=== PATIENT | female | born 1940 | race Caucasian/White ===

== ENCOUNTER 2017-03-23 00:33 | Inpatient (IN) | payer MEDICARE, OTHER ==
[2017-03-23] VITALS (9 sets, daily range): BP systolic 122–169; BP diastolic 42–73
[~2017-03-23] VITALS: Ht 160 cm; Wt 87.7 kg
[2017-03-23 01:32] LABS: BASO % 0.3 % (0.0-1.0); EOS # 0.1 10*3/uL (0.0-0.4); EOS % 1.1 % (1.0-4.0); HEMATOCRIT 38.7 % (37.0-47.0); HEMOGLOBIN 13.6 g/dl (12.0-16.0); LYMPH # 1.8 10*3/uL (1.3-4.4); LYMPH % 15.2 % (27.0-41.0); MEAN CELL VOLUME 89.4 fl (81.0-99.0); MEAN CORPUSCULAR HGB 31.4 pg (27.0-31.0); MEAN CORPUSCULAR HGB CONC 35.1 g/dl (33.0-37.0); MEAN PLATELET VOLUME 9.4 fl (9.6-12.3); MONO # 0.9 10*3/uL (0.1-1.0); MONO % 7.8 % (3.0-9.0); NEUT # 8.8 10*3/uL (2.3-7.9); NEUT % 74.8 % (47.0-73.0); PLATELET COUNT AUTOMATED 247 10*3/uL (130-400); RED BLOOD COUNT 4.33 10*6/uL (4.10-5.10); RED CELL DISTRI WIDTH 11.7 % (0-14.5); WHITE BLOOD COUNT 11.7 10*3/uL (4.8-10.8)
[2017-03-23 01:51] LABS: ALBUMIN 3.2 gm/dl (3.1-4.5); ALKALINE PHOSPHATASE 99 U/L (45-117); BUN 24 mg/dl (7-24); CHLORIDE 98 mmol/L (98-107); POTASSIUM 3.1 mmol/L (3.5-5.1); SGOT/AST 19 IU/L (3-35); SGPT/ALT 22 U/L (12-78); SODIUM 136 mmol/L (136-145); TOTAL PROTEIN 7.6 gm/dL (6.4-8.2)
[2017-03-23 01:52] LABS: TROPONIN I < 0.015 ng/ml (<0.045)
[2017-03-23 03:25] LABS: BILIRUBIN 1+ (NEGATIVE); BLOOD TRACE-LYSED (NEGATIVE); CLARITY CLEAR (CLEAR); COLOR YELLOW (YELLOW); GLUCOSE NEGATIVE (NEGATIVE); KETONE TRACE (NEGATIVE); LEUKO ESTERASE 1+ (NEGATIVE); NITRITE NEGATIVE (NEGATIVE); SPECIFIC GRAVITY <= 1.005 (1.005-1.030); UROBILINOGEN 0.2 E.U./dl (0.2-1.0)
[2017-03-23 03:33] LABS: URINE AMPHETAMINES < 1000 (1000ng/ml); URINE BARBITURATES < 200 (200ng/ml); URINE BENZODIAZEPINES < 200 (200ng/ml); URINE CANNABINOIDS (THC) < 50 (50ng/ml); URINE COCAINE < 300 (300ng/ml); URINE METHADONE < 300 (300ng/ml); URINE OPIATES < 300 (300ng/ml)
[2017-03-23 03:34] LABS: URINE PHENCYCLIDINE < 25 (25ng/ml)
[2017-03-23 03:36] LABS: EPITHELIAL CELLS 25-30
[2017-03-23 03:37] LABS: BACTERIA TRACE
[2017-03-23 06:37] LABS: BASO % 0.3 % (0.0-1.0); EOS # 0.2 10*3/uL (0.0-0.4); EOS % 1.5 % (1.0-4.0); HEMATOCRIT 39.7 % (37.0-47.0); HEMOGLOBIN 13.8 g/dl (12.0-16.0); LYMPH # 3.1 10*3/uL (1.3-4.4); LYMPH % 24.9 % (27.0-41.0); MEAN CELL VOLUME 87.6 fl (81.0-99.0); MEAN CORPUSCULAR HGB 30.5 pg (27.0-31.0); MEAN CORPUSCULAR HGB CONC 34.8 g/dl (33.0-37.0); MEAN PLATELET VOLUME 9.7 fl (9.6-12.3); MONO % 8.1 % (3.0-9.0); NEUT # 7.9 10*3/uL (2.3-7.9); NEUT % 64.6 % (47.0-73.0); PLATELET COUNT AUTOMATED 284 10*3/uL (130-400); RED BLOOD COUNT 4.53 10*6/uL (4.10-5.10); RED CELL DISTRI WIDTH 11.7 % (0-14.5); WHITE BLOOD COUNT 12.3 10*3/uL (4.8-10.8)
[2017-03-23 07:01] LABS: ALBUMIN 3.3 gm/dl (3.1-4.5); CREATININE 1.18 mg/dL (0.55-1.02); FREE T4 1.74 ng/dl (0.76-1.46); PHOSPHOROUS 3.4 mg/dL (2.5-4.9); POTASSIUM 3.3 mmol/L (3.5-5.1); TOTAL PROTEIN 7.8 gm/dL (6.4-8.2)
[2017-03-23 07:06] LABS: THYROID STIM HORMONE (HS) 2.84 uIU/ml (0.358-4.75)
[2017-03-23 07:10] LABS: ACT PARTIAL THROMBO TIME 27.2 SECONDS (20.8-31.5)
[2017-03-23] MEDS ORDERED: AMLODIPINE BESYL5 MG PO (07:55)
[2017-03-23] MEDS ORDERED: SYNTHROID,LEV112 MCG PO (07:56)
[2017-03-23] MEDS ORDERED: ZOLPIDEM10 MG PO (07:56)
[2017-03-23] MEDS ORDERED: RANITIDINE HCL300 M2 PO (07:56)
[2017-03-23] MEDS ORDERED: EYE VITAMIN PO (07:58)
[2017-03-23] MEDS ORDERED: MULTIVITAMINS1 EAC5 PO (07:59)
[2017-03-23] MEDS ORDERED: TRIAMTERENE & H1 CAP PO (07:59)
[2017-03-23 09:00] LABS: VITAMIN D, 25-HYDROXY 23.8 ng/mL (30-100)
[2017-03-24] VITALS (12 sets, daily range): BP systolic 144–196; BP diastolic 50–84
[2017-03-24 06:28] LABS: BASO % 0.4 % (0.0-1.0); EOS # 0.3 10*3/uL (0.0-0.4); EOS % 3.3 % (1.0-4.0); HEMATOCRIT 35.6 % (37.0-47.0); HEMOGLOBIN 12.4 g/dl (12.0-16.0); LYMPH # 2.5 10*3/uL (1.3-4.4); LYMPH % 25.1 % (27.0-41.0); MEAN CELL VOLUME 89.9 fl (81.0-99.0); MEAN CORPUSCULAR HGB 31.3 pg (27.0-31.0); MEAN CORPUSCULAR HGB CONC 34.8 g/dl (33.0-37.0); MEAN PLATELET VOLUME 9.3 fl (9.6-12.3); MONO # 0.8 10*3/uL (0.1-1.0); MONO % 8.1 % (3.0-9.0); NEUT # 6.3 10*3/uL (2.3-7.9); NEUT % 62.6 % (47.0-73.0); PLATELET COUNT AUTOMATED 275 10*3/uL (130-400); RED BLOOD COUNT 3.96 10*6/uL (4.10-5.10); RED CELL DISTRI WIDTH 11.9 % (0-14.5)
[2017-03-24 06:53] LABS: CREATININE 1.17 mg/dL (0.55-1.02); POTASSIUM 3.4 mmol/L (3.5-5.1)
[2017-03-25] VITALS: BP 155/53
[2017-03-25 06:07] LABS: BASO % 0.2 % (0.0-1.0); EOS % 0.1 % (1.0-4.0); HEMATOCRIT 33.6 % (37.0-47.0); HEMOGLOBIN 11.2 g/dl (12.0-16.0); LYMPH % 15.8 % (27.0-41.0); MEAN CELL VOLUME 90.8 fl (81.0-99.0); MEAN CORPUSCULAR HGB 30.3 pg (27.0-31.0); MEAN CORPUSCULAR HGB CONC 33.3 g/dl (33.0-37.0); MEAN PLATELET VOLUME 9.5 fl (9.6-12.3); MONO % 8.2 % (3.0-9.0); NEUT # 9.6 10*3/uL (2.3-7.9); NEUT % 75.2 % (47.0-73.0); PLATELET COUNT AUTOMATED 263 10*3/uL (130-400); RED CELL DISTRI WIDTH 11.9 % (0-14.5); WHITE BLOOD COUNT 12.7 10*3/uL (4.8-10.8)
[2017-03-25 06:36] LABS: ALBUMIN 2.7 gm/dl (3.1-4.5); ALKALINE PHOSPHATASE 76 U/L (45-117); BUN 13 mg/dl (7-24); CHLORIDE 108 mmol/L (98-107); POTASSIUM 3.8 mmol/L (3.5-5.1); SGOT/AST 61 IU/L (3-35); SGPT/ALT 47 U/L (12-78); SODIUM 141 mmol/L (136-145); TOTAL PROTEIN 6.7 gm/dL (6.4-8.2)
[2017-03-25 08:00] VITALS: BP 144/60
[2017-03-25 12:00] VITALS: BP 123/56
[2017-03-25] MEDS ORDERED: NORCO 5/325 PO (12:44)
[2017-03-25 16:00] VITALS: BP 155/66
[2017-03-25 20:00] VITALS: BP 146/54
[2017-03-26] VITALS: BP 112/50
[2017-03-26 08:00] VITALS: BP 146/58
[2017-03-26 12:00] VITALS: BP 136/76
[2017-03-26] MEDS ORDERED: AUGMENTIN 875875 MG PO (14:11)
== END 2017-03-26 16:25 | disposition home or self-care (01) | DRG 853 ==
LOC: ED 00:33 → 5E 04:28 → EDHOLD 04:28 → 5E 04:38
PROVIDERS: Emergency Medicine; Family Medicine Adult Medicine; Hospitalist; ADMIT Internal Medicine
PROC: 0FT44ZZ Resection of Gallbladder, Percutaneous Endoscopic Approach (ICD-10-PCS; principal; 2017-03-24)
DX: A41.9 Sepsis, unspecified organism (principal); G93.41 Metabolic encephalopathy; N17.0 Acute kidney failure with tubular necrosis; K80.00 Calculus of gallbladder with acute cholecystitis without obstruction; I10 Essential (primary) hypertension; E03.9 Hypothyroidism, unspecified; K21.9 Gastro-esophageal reflux disease without esophagitis; E87.6 Hypokalemia; R73.03 Prediabetes; D64.9 Anemia, unspecified; Z96.659 Presence of unspecified artificial knee joint; Z91.040 Latex allergy status; Z90.710 Acquired absence of both cervix and uterus; Z82.49 Family history of ischemic heart disease and other diseases of the circulatory system; Z79.899 Other long term (current) drug therapy

== ENCOUNTER → 2020-11-01 | Outpatient (CLI) | payer MEDICARE, OTHER ==
[~2020-11-01] MED LIST: AMLODIPINE BESYL5 MG PO; AUGMENTIN 875875 MG PO; EYE VITAMIN PO; MULTIVITAMINS1 EAC5 PO; NORCO 5/325 PO; RANITIDINE HCL300 M2 PO; SYNTHROID,LEV112 MCG PO; TRIAMTERENE & H1 CAP PO; ZOLPIDEM10 MG PO
[2020-11-01 12:53] LABS: BASO # 0.1 10*3/uL (0.0-0.1); BASO % 0.4 % (0.0-1.0); EOS # 0.3 10*3/uL (0.0-0.4); EOS % 2.2 % (1.0-4.0); HEMATOCRIT 36.2 % (37.0-47.0); LYMPH # 2.8 10*3/uL (1.3-4.4); LYMPH % 20.8 % (27.0-41.0); MEAN CELL VOLUME 87.9 fl (81.0-99.0); MEAN CORPUSCULAR HGB 29.6 pg (27.0-31.0); MEAN CORPUSCULAR HGB CONC 33.7 g/dl (33.0-37.0); MEAN PLATELET VOLUME 9.1 fl (9.6-12.3); MONO # 1.1 10*3/uL (0.1-1.0); MONO % 8.2 % (3.0-9.0); NEUT # 9.2 10*3/uL (2.3-7.9); NEUT % 67.9 % (47.0-73.0); PLATELET COUNT AUTOMATED 408 10*3/uL (130-400); RED BLOOD COUNT 4.12 10*6/uL (4.10-5.10); RED CELL DISTRI WIDTH 11.9 % (0-14.5); WHITE BLOOD COUNT 13.6 10*3/uL (4.8-10.8)
[2020-11-01 13:13] LABS: CREATININE 1.25 mg/dL (0.55-1.02); POTASSIUM 3.5 mmol/L (3.5-5.1)
[2020-11-01 13:19] LABS: THYROID STIM HORMONE (HS) 4.01 uIU/ml (0.358-4.75)
[2020-11-02 08:08] LABS: RHEUMATOID ARTHRITIS FACTOR <10.0 IU/mL (0.0-13.9)
== END | disposition home or self-care (01) ==
LOC: LAB 11:50
PROVIDERS: ATTEND Family Medicine
DX: M19.011 Primary osteoarthritis, right shoulder (principal); M19.012 Primary osteoarthritis, left shoulder; I10 Essential (primary) hypertension; E78.2 Mixed hyperlipidemia; E03.9 Hypothyroidism, unspecified

== ENCOUNTER 2020-11-26 03:31 | Emergency (ER) | payer MEDICARE, OTHER ==
[~2020-11-26] VITALS: Ht 160 cm; Wt 87.1 kg
[2020-11-26 04:02] VITALS: BP 165/61
== END 2020-11-26 04:52 | disposition home or self-care (01) ==
LOC: ED 03:31
DX: M19.011 Primary osteoarthritis, right shoulder (principal); M19.012 Primary osteoarthritis, left shoulder; Z79.2 Long term (current) use of antibiotics; Z79.899 Other long term (current) drug therapy; Z90.49 Acquired absence of other specified parts of digestive tract; Z98.890 Other specified postprocedural states; Z96.652 Presence of left artificial knee joint; Z90.711 Acquired absence of uterus with remaining cervical stump

== ENCOUNTER → 2022-03-22 | Outpatient (CLI) | payer MEDICARE | END | disposition home or self-care (01) | LOC: LAB 08:22 → RAD 08:22 | PROVIDERS: ATTEND Family Medicine | DX: Z13.820 Encounter for screening for osteoporosis (principal); M81.0 Age-related osteoporosis without current pathological fracture; M85.851 Other specified disorders of bone density and structure, right thigh ==

== ENCOUNTER 2022-06-05 17:59 | Emergency (ER) | payer MEDICARE ==
[~2022-06-05] VITALS: Ht 162.5 cm; Wt 77.1 kg
[2022-06-05 18:31] VITALS: BP 168/99
== END 2022-06-05 22:22 | disposition home or self-care (01) ==
LOC: ED 17:59
DX: R51.9 Headache, unspecified (principal); I10 Essential (primary) hypertension; K21.9 Gastro-esophageal reflux disease without esophagitis; M19.90 Unspecified osteoarthritis, unspecified site; Z79.899 Other long term (current) drug therapy; Z90.49 Acquired absence of other specified parts of digestive tract; Z98.890 Other specified postprocedural states; Z90.710 Acquired absence of both cervix and uterus

== ENCOUNTER → 2022-11-29 | Outpatient (CLI) | payer MEDICARE, OTHER ==
[2022-11-29 12:09] LABS: BASO % 0.3 % (0.0-1.0); EOS # 0.2 10*3/uL (0.0-0.4); EOS % 2.2 % (1.0-4.0); HEMATOCRIT 39.2 % (37.0-47.0); LYMPH # 2.2 10*3/uL (1.3-4.4); LYMPH % 24.2 % (27.0-41.0); MEAN CELL VOLUME 89.1 fl (81.0-99.0); MEAN CORPUSCULAR HGB 29.8 pg (27.0-31.0); MEAN CORPUSCULAR HGB CONC 33.4 g/dl (33.0-37.0); MEAN PLATELET VOLUME 9.4 fl (9.6-12.3); MONO # 0.8 10*3/uL (0.1-1.0); MONO % 8.6 % (3.0-9.0); NEUT # 5.9 10*3/uL (2.3-7.9); NEUT % 64.4 % (47.0-73.0); PLATELET COUNT AUTOMATED 251 10*3/uL (130-400); RED CELL DISTRI WIDTH 11.9 % (0-14.5); WHITE BLOOD COUNT 9.2 10*3/uL (4.8-10.8)
[2022-11-29 12:44] LABS: ALKALINE PHOSPHATASE 98 U/L (46-116); BUN 12 mg/dl (9-23); CHLORIDE 105 mmol/L (98-107); POTASSIUM 3.8 mmol/L (3.4-5.1); SGPT/ALT 8 U/L (10-49); THYROID STIM HORMONE (HS) 1.981 uIU/ml (0.550-4.780)
== END | disposition home or self-care (01) ==
LOC: LAB 11:31
PROVIDERS: ATTEND Family Medicine
DX: I10 Essential (primary) hypertension (principal); M35.3 Polymyalgia rheumatica